=== PATIENT | male | born 1985 | race Caucasian/White ===

== ENCOUNTER 2018-10-17 21:07 | Emergency (ER) | payer OTHER, MEDICAID ==
[~2018-10-17] VITALS: Ht 175.3 cm; Wt 90.7 kg
[2018-10-17 21:18] VITALS: BP_SYST 142
--- NOTE | 2018-10-17 22:51 | NUR ---
Patient to [facility] for evaluation. Side rails up. Report given to KANDICE Gonzalez
--- NOTE | 2018-10-17 23:00 | NUR ---
Pt called 3x, no answer
--- NOTE | 2018-10-17 23:00 | NUR ---
Patient left without being seen. No further treatment provided. ER made aware
== END 2018-10-17 23:00 | disposition left against medical advice (07) ==
LOC: SED 21:07
DX: R22.31 Localized swelling, mass and lump, right upper limb (principal); Z53.21 Procedure and treatment not carried out due to patient leaving prior to being seen by health care provider